=== PATIENT | female | born 1950 | race Caucasian/White ===

== ENCOUNTER 2017-09-19 13:05 | Day surgery (SDC) | payer MEDICARE ==
[~2017-09-19] VITALS: Ht 172.7 cm; Wt 99.5 kg
[~2017-09-19 13:05] MED LIST: ACET325 PO; ALBU90OI INH; ALLO100 PO; ALLO300 PO; AMIT25 PO; BIOTIN2500 MCG PO; BUPR150T2; BUSP5; Bentyl20 MG PO; CEPH500 PO; CIPR500 PO; CIPRO500 MG PO; CLON.5 PO; CLON1; CLON1 PO; COLC.6 PO; CYCL10 PO; Cleocin HCl150 MG PO; DIPATR PO; DIPH25 PO; DULO30 PO; DULO60 PO; ERGO400 PO; ESOM20; ESOM20 PO; FISH OIL 1,0001 EAC1 PO; FLUC150A PO; FLUO10; FURO40 PO; FURO80; FURO80 PO; GABA100 PO; GABA300 PO; HYDACE5 PO; HYDHCL25 PO; HYDR1TAB94 PO; INSULANPEN SC; LEVSOD100 PO; LEVSOD50; LIDO5TP TOP; LISI10; LISI10 PO; LISI20 PO; LORA1 PO; METO10 PO; MINO50 PO; MIRT15 PO; MODA200; MODA200 PO; MORP30; MORP30ER; MORP30ER PO; MORP60ER; MORP60ER PO; NAPR500EC PO; NEBI5 PO; Norco 5-325 Ta1 EACH PO; OMEP20ER PO; OXYACE5T PO; PARI1 PO; PHENA200 PO; POTA10T PO; POTA20PAC PO; POTCHL20ER; POTCHL20ER PO; PRAV20 PO; PRED20 PO; PREG75 PO; PROB500; PROC25S PR; Prinivil10 MG PO; RABEPRAZOLE; RXHYDGUAS PO; RXOXYACE PO; RXTRAM50 PO; SACC250C PO; SULTRIDS PO; TIZANIDINE HCL2 MG PO; TRAM50 PO; VITAMIN D32000 UNI1 PO; Voltaren100 GM TP; [UNRECOGNIZED DRUG - REMARK]; [UNRECOGNIZED DRUG - REMARK] PO
[2017-09-19] MEDS ORDERED: TRAM50 PO (13:27)
== END 2017-09-19 14:45 | disposition home or self-care (01) ==
LOC: ORSCSDS 13:05
PROVIDERS: Anesthesiology
PROC: 3E0R33Z Introduction of Anti-inflammatory into Spinal Canal, Percutaneous Approach (ICD-10-PCS; principal; 2017-09-19 14:00)
DX: M54.16 Radiculopathy, lumbar region (principal); E66.9 Obesity, unspecified; Z68.33 Body mass index [BMI] 33.0-33.9, adult; E11.9 Type 2 diabetes mellitus without complications; E03.9 Hypothyroidism, unspecified; I10 Essential (primary) hypertension; K21.9 Gastro-esophageal reflux disease without esophagitis; F41.9 Anxiety disorder, unspecified; N18.9 Chronic kidney disease, unspecified; Z79.899 Other long term (current) drug therapy
CPT/HCPCS: 82947; J1040

== ENCOUNTER 2018-01-15 10:08 | Day surgery (SDC) | payer MEDICARE ==
[~2018-01-15] VITALS: Ht 172.7 cm; Wt 100.2 kg
== END 2018-01-15 11:54 | disposition home or self-care (01) ==
LOC: ORSCSDS 10:08
PROVIDERS: Anesthesiology
PROC: 3E0R33Z Introduction of Anti-inflammatory into Spinal Canal, Percutaneous Approach (ICD-10-PCS; principal; 2018-01-15 11:00)
DX: M50.122 Cervical disc disorder at C5-C6 level with radiculopathy (principal); M96.1 Postlaminectomy syndrome, not elsewhere classified; E11.9 Type 2 diabetes mellitus without complications; E03.9 Hypothyroidism, unspecified; I10 Essential (primary) hypertension; F41.9 Anxiety disorder, unspecified; K21.9 Gastro-esophageal reflux disease without esophagitis; E66.01 Morbid (severe) obesity due to excess calories; Z68.34 Body mass index [BMI] 34.0-34.9, adult; Z79.4 Long term (current) use of insulin; Z79.899 Other long term (current) drug therapy
CPT/HCPCS: 82947; J1040; J2250; J3010

== ENCOUNTER 2018-03-11 15:14 | Emergency (ER) | payer MEDICARE ==
[~2018-03-11] VITALS: Ht 170.2 cm; Wt 99.8 kg
[2018-03-11] MEDS ORDERED: GABA600 (16:03)
[2018-03-11] MEDS ORDERED: Lasix80 MG (16:03)
[2018-03-11] MEDS ORDERED: Lisinopril2.5 MG (16:04)
[2018-03-11 16:05] LABS: BASOPHILS ABSOLUTE AUTO 0.06 K/mm3 (0.00-0.23); BASOPHILS PERCENT AUTO 1 % (0-2); EOSINOPHILS ABSOLUTE AUTO 0.24 K/mm3 (0.00-0.68); EOSINOPHILS PERCENT AUTO 3 % (0-6); Hematocrit 37.3 % (33.0-51.0); Hemoglobin 11.9 g/dL (11.5-16.0); IMMATURE GRAN ABSOLUTE AUTO 0.04 K/mm3 (0.00-0.10); IMMATURE GRAN PERCENT AUTO 1 % (0-1); LYMPHOCYTES ABSOLUTE AUTO 1.28 K/mm3 (0.84-5.20); LYMPHOCYTES PERCENT AUTO 15 % (21-46); MONOCYTES ABSOLUTE AUTO 0.83 K/mm3 (0.16-1.47); MONOCYTES PERCENT AUTO 10 % (4-13); Mean Corpuscular HGB 28.9 pg (26.0-34.0); Mean Corpuscular HGB Conc 31.9 g/dL (31.5-36.5); Mean Corpuscular Volume 91 fL (80-100); Mean Platelet Volume 10.1 fL (9.1-12.4); NEUTROPHILS ABSOLUTE AUTO 6.04 K/mm3 (1.96-9.15); NEUTROPHILS PERCENT AUTO 71 % (41-73); Platelet Count 213 K/mm3 (150-400); RDW Coefficient Variation 13.5 % (11.7-14.2); RDW Standard Deviation 44.5 fL (35.1-46.3); Red Blood Cell Count 4.12 M/mm3 (3.80-5.20); White Blood Cell Count 8.49 K/mm3 (4.00-11.30)
[2018-03-11 16:28] LABS: Alanine Aminotransfer (ALT/SGP 26 U/L (12-78); Albumin, Blood 3.4 g/dL (3.4-5.0); Albumin/Globulin Ratio 1.1 (0.8-1.8); Alk Phos 162 U/L (50-136); Anion Gap 7 mmol/L (6-16); Aspartate Aminotrans (AST/SGOT 25 U/L (12-37); Bilirubin, Total 0.4 mg/dL (0.1-1.0); Blood Urea Nitrogen 13 mg/dL (8-24); Bun/Creatinine Ratio 13.8 (12.0-20.0); CO2, Blood 25 mmol/L (21-32); Calcium, Blood 8.4 mg/dL (8.5-10.1); Chloride, Blood 107 mmol/L (98-108); Creatinine, Blood 0.95 mg/dL (0.40-1.00); Globulin, Blood 3.2 g/dL (2.2-4.0); Glomerular Filtration Rate >60 (60-); Glucose, Blood 143 mg/dL (70-99); Potassium, Blood 3.8 mmol/L (3.5-5.5); Sodium, Blood 139 mmol/L (136-145); Total Protein, Blood 6.6 g/dL (6.4-8.2)
== END 2018-03-11 18:12 | disposition home or self-care (01) ==
LOC: ER 15:14
PROVIDERS: Emergency Medicine
DX: G45.9 Transient cerebral ischemic attack, unspecified (principal); Z88.6 Allergy status to analgesic agent; Z79.899 Other long term (current) drug therapy
CPT/HCPCS: 36415; 70450; 71046; 80053; 82947; 83880; 85025; 93005; 93010; 93880; 99285-25

== ENCOUNTER → 2018-06-11 | Outpatient (CLI) | payer MEDICARE, OTHER ==
[~2018-06-11] MED LIST changes: +GABA600; +Lasix80 MG; +Lisinopril2.5 MG; +Pyridium100 MG PO
[2018-06-11 17:39] LABS: Appearance, Urine Hazy (Clear); Bilirubin, Urine Neg (Neg); Blood, Urine 1+ (Neg); Color, Urine Yellow (P-Yellow); Glucose Qualitative, Urine Neg (Neg); Ketones, Urine Neg (Neg); Leukocyte Esterase, Urine 2+ (Neg); Nitrite, Urine Pos (Neg); Protein, Urine 1+ (Neg); Urobilinogen, Urine NORM (Normal)
[2018-06-11 18:14] LABS: White Blood Cells, Urine 25-50 /hpf (0-5)
[2018-06-11 18:15] LABS: Bacteria Mod /hpf; Red Blood Cells, Urine Not Seen /hpf (0-2); Squamous Epithelial Cells Rare /hpf (Few)
== END | disposition home or self-care (01) ==
LOC: LAB SHORT 09:25 → LAB 09:25
PROVIDERS: Internal Medicine Nephrology
DX: N39.0 Urinary tract infection, site not specified (principal)
CPT/HCPCS: 81001; 87077; 87086; 87186

== ENCOUNTER 2018-07-20 05:59 | Emergency (ER) | payer MEDICARE, OTHER ==
[~2018-07-20] VITALS: Ht 170.2 cm; Wt 99.8 kg
[~2018-07-20 05:59] MED LIST changes: -Pyridium100 MG PO
[2018-07-20 06:30] LABS: Source, Urine Clean Catch
[2018-07-20 06:34] LABS: Bilirubin, Urine Neg (Neg); Blood, Urine Neg (Neg); Glucose Qualitative, Urine Neg (Neg); Ketones, Urine Neg (Neg); Leukocyte Esterase, Urine 3+ (Neg); Nitrite, Urine Neg (Neg); Protein, Urine Neg (Neg); Urobilinogen, Urine NORM (Normal)
[2018-07-20 07:02] LABS: Appearance, Urine Hazy (Clear); Color, Urine Pale Yellow (P-Yellow)
[2018-07-20 07:03] LABS: Bacteria Rare /hpf; Red Blood Cells, Urine Not Seen /hpf (0-2); Squamous Epithelial Cells Rare /hpf (Few); White Blood Cells, Urine 25-50 /hpf (0-5)
[2018-07-20] MEDS ORDERED: CEPH500 PO (07:12)
[2018-07-20] MEDS ORDERED: Pyridium100 MG PO (07:12)
== END 2018-07-20 07:40 | disposition home or self-care (01) ==
LOC: ER 05:59
PROVIDERS: Emergency Medicine
DX: N30.00 Acute cystitis without hematuria (principal); Z88.6 Allergy status to analgesic agent; Z79.899 Other long term (current) drug therapy
CPT/HCPCS: 81001; 87077; 87086; 87186; 99283

== ENCOUNTER → 2018-08-21 | Outpatient (CLI) | payer MEDICARE, OTHER ==
[~2018-08-21] MED LIST changes: +Pyridium100 MG PO
[2018-08-21 17:43] LABS: White Blood Cells, Urine TNTC /hpf (0-5)
[2018-08-21 17:45] LABS: Bacteria Many /hpf; Squamous Epithelial Cells Few /hpf (Few)
== END | disposition home or self-care (01) ==
LOC: LAB SHORT 10:35 → LAB 10:35
PROVIDERS: Internal Medicine Nephrology
DX: N39.0 Urinary tract infection, site not specified (principal)
CPT/HCPCS: 81015; 87077; 87086; 87186

== ENCOUNTER 2018-09-23 10:11 | Day surgery (SDC) | payer MEDICARE, OTHER ==
[~2018-09-23] VITALS: Ht 172.7 cm; Wt 96.2 kg
[~2018-09-23 10:11] MED LIST changes: +ALBU90OI61 INH; +ALPR.5 PO; +BIOTIN5000 MCG PO; +Bystolic20 MG PO; +CLON.3TP TOP; +Calcitriol0.25 MCG PO; +Calcium Magnes1 EAC1 PO; +Cinnamon500 MG PO; +Clonazepam0.5 MG PO; +Fish Oil 10001000 MG PO; +GABA600 PO; +K-Dur 20 meq T20 MEQ PO; +LEVO-T100 MCG PO; +LIDO700A20 TOP; +LO-DOSE ASPIRIN81 MG PO; +Minocycline HC100 M1 PO; +NEBI10 PO; +OMEPRAZOLE MAGN20 MG PO; +Omeprazole20 M1 PO; +SERT100 PO; +TUMERIC PO; +Vitamin D2000 UNIT PO; +ZESTRIL40 MG PO; +Zanaflex2 M1 PO
[2018-09-23] MEDS ORDERED: Lomotil Tablet1 EACH (11:18)
--- NOTE | 2018-09-23 13:21 | NUR ---
09/23/18 1321 Shayla Morton O2 10L VIA NON REBREATHER
== END 2018-09-23 14:55 | disposition home or self-care (01) ==
LOC: ORSCSDS 10:11
PROVIDERS: Internal Medicine Gastroenterology
PROC: 0DBK8ZX Excision of Ascending Colon, Via Natural or Artificial Opening Endoscopic, Diagnostic (ICD-10-PCS; principal; 2018-09-23 11:30)
PROC: 0DB68ZX Excision of Stomach, Via Natural or Artificial Opening Endoscopic, Diagnostic (ICD-10-PCS; principal; 2018-09-23 11:30)
PROC: 0DB98ZX Excision of Duodenum, Via Natural or Artificial Opening Endoscopic, Diagnostic (ICD-10-PCS; principal; 2018-09-23 11:30)
PROC: 0DBE8ZX Excision of Large Intestine, Via Natural or Artificial Opening Endoscopic, Diagnostic (ICD-10-PCS; principal; 2018-09-23 11:30)
PROC: 0DBL8ZX Excision of Transverse Colon, Via Natural or Artificial Opening Endoscopic, Diagnostic (ICD-10-PCS; principal; 2018-09-23 11:30)
DX: R19.7 Diarrhea, unspecified (principal); R10.11 Right upper quadrant pain; R10.32 Left lower quadrant pain; Z86.010 Personal history of colon polyps; K31.7 Polyp of stomach and duodenum; D12.2 Benign neoplasm of ascending colon; K63.5 Polyp of colon; K57.30 Diverticulosis of large intestine without perforation or abscess without bleeding; K64.8 Other hemorrhoids; K64.4 Residual hemorrhoidal skin tags; I10 Essential (primary) hypertension; J45.909 Unspecified asthma, uncomplicated; G47.33 Obstructive sleep apnea (adult) (pediatric); K70.30 Alcoholic cirrhosis of liver without ascites; E11.40 Type 2 diabetes mellitus with diabetic neuropathy, unspecified; E03.9 Hypothyroidism, unspecified; Z79.4 Long term (current) use of insulin; Z79.82 Long term (current) use of aspirin; Z79.899 Other long term (current) drug therapy
CPT/HCPCS: 82947; 88305; 88342; J2250; J2370; J2704; J7120

== ENCOUNTER 2018-09-30 10:57 | Day surgery (SDC) | payer MEDICARE, OTHER ==
[~2018-09-30] VITALS: Ht 172.7 cm; Wt 96.4 kg
[~2018-09-30 10:57] MED LIST changes: +Lomotil Tablet1 EACH
== END 2018-09-30 12:12 | disposition home or self-care (01) ==
LOC: ORSCSDS 10:57
PROVIDERS: Anesthesiology
PROC: 3E0R33Z Introduction of Anti-inflammatory into Spinal Canal, Percutaneous Approach (ICD-10-PCS; principal; 2018-09-30 12:00)
DX: M54.16 Radiculopathy, lumbar region (principal); M96.1 Postlaminectomy syndrome, not elsewhere classified; I10 Essential (primary) hypertension; E11.9 Type 2 diabetes mellitus without complications; F32.9 Major depressive disorder, single episode, unspecified; J45.909 Unspecified asthma, uncomplicated; E66.9 Obesity, unspecified; Z68.32 Body mass index [BMI] 32.0-32.9, adult; Z79.82 Long term (current) use of aspirin; Z79.4 Long term (current) use of insulin; Z79.899 Other long term (current) drug therapy
CPT/HCPCS: 82947; J1040

== ENCOUNTER 2019-02-26 10:13 | Day surgery (SDC) | payer MEDICARE, OTHER ==
[~2019-02-26] VITALS: Ht 172.7 cm; Wt 94.8 kg
--- NOTE | 2019-02-26 10:37 | NUR ---
02/26/19 Perla Wynn CALL LIGHT WITHIN REACH
== END 2019-02-26 11:48 | disposition home or self-care (01) ==
LOC: ORSCSDS 10:13
PROVIDERS: Anesthesiology
PROC: B01B1ZZ Fluoroscopy of Spinal Cord using Low Osmolar Contrast (ICD-10-PCS; principal; 2019-02-26 11:00)
PROC: 3E0R33Z Introduction of Anti-inflammatory into Spinal Canal, Percutaneous Approach (ICD-10-PCS; principal; 2019-02-26 11:00)
DX: M96.1 Postlaminectomy syndrome, not elsewhere classified (principal); M54.12 Radiculopathy, cervical region; I10 Essential (primary) hypertension; E03.9 Hypothyroidism, unspecified; E11.9 Type 2 diabetes mellitus without complications; G47.33 Obstructive sleep apnea (adult) (pediatric); J45.909 Unspecified asthma, uncomplicated; K21.9 Gastro-esophageal reflux disease without esophagitis; F41.8 Other specified anxiety disorders; Z79.4 Long term (current) use of insulin; Z79.899 Other long term (current) drug therapy; Z79.82 Long term (current) use of aspirin
CPT/HCPCS: 82947; J1040; J2250; J3010; J7040

== ENCOUNTER → 2019-05-11 | Outpatient (CLI) | payer MEDICARE, OTHER ==
[2019-05-14 13:07] LABS: M-SPIKE, % Not Observed % (Not Observed); PROTEIN,TOTAL,URINE <4.0 mg/dL (Not Estab.)
== END | disposition home or self-care (01) ==
LOC: OLS 03:00 → LAB SHORT 03:00 → LAB FUT 04-20 13:50
PROVIDERS: Internal Medicine
DX: Z00.01 Encounter for general adult medical examination with abnormal findings (principal)
CPT/HCPCS: 81050; 84156; 84166

== ENCOUNTER → 2020-02-25 | Outpatient (CLI) | payer MEDICARE, OTHER | END | disposition home or self-care (01) | LOC: LAB SHORT 08:45 → LAB 08:45 | DX: R34 Anuria and oliguria (principal) | CPT/HCPCS: 87077; 87086; 87186 ==

== ENCOUNTER → 2020-05-06 | Outpatient (CLI) | payer MEDICARE, OTHER ==
[2020-05-07 12:57] LABS: Candida species (DNA Probe) Negative (NEGATIVE); G. vaginalis (DNA Probe) Negative (NEGATIVE); T. vaginalis (DNA Probe) Negative (NEGATIVE)
== END | disposition home or self-care (01) ==
LOC: LAB 18:29 → LAB SHORT 18:29
PROVIDERS: Family Medicine
DX: N76.0 Acute vaginitis (principal)
CPT/HCPCS: 87480; 87510; 87660

== ENCOUNTER → 2020-09-30 | Outpatient (CLI) | payer MEDICARE | END | disposition home or self-care (01) | LOC: LAB 12:05 → LAB SHORT 12:05 | DX: R35.0 Frequency of micturition (principal) | CPT/HCPCS: 87086 ==

== ENCOUNTER → 2020-11-06 | Outpatient (CLI) | payer MEDICARE | LOC: LAB 10:33 → LAB SHORT 10:33 | DX: N30.00 Acute cystitis without hematuria (principal); Z88.8 Allergy status to other drugs, medicaments and biological substances; Z88.1 Allergy status to other antibiotic agents | CPT/HCPCS: 87077; 87086; 87186 ==

== ENCOUNTER → 2021-03-16 | Outpatient (CLI) | payer MEDICARE | END | disposition home or self-care (01) | LOC: LAB SHORT 15:04 → LAB 15:04 | DX: R30.0 Dysuria (principal) | CPT/HCPCS: 87077; 87086; 87186 ==

== ENCOUNTER → 2021-07-07 | Outpatient (CLI) | payer MEDICARE, OTHER ==
[~2021-07-07] MED LIST changes: +BASAGLAR K100 UNIT/3 SC; +CALCITRIOL0.25 MC4 PO; +EUTHYROX100 MC1 PO; +NEURONTIN300 MG PO; +Naltrexone HCl50 MG PO; +Nitrofurantoin100 M1 PO; +VENL150ER PO
== END | disposition home or self-care (01) ==
LOC: LAB SHORT 17:53
DX: N39.0 Urinary tract infection, site not specified (principal)
CPT/HCPCS: 87077; 87086; 87186

== ENCOUNTER 2021-07-12 12:38 | Emergency (ER) | payer MEDICARE, OTHER ==
[~2021-07-12] VITALS: Ht 170.2 cm; Wt 95.2 kg
[~2021-07-12 12:38] MED LIST changes: -BASAGLAR K100 UNIT/3 SC; -CALCITRIOL0.25 MC4 PO; -EUTHYROX100 MC1 PO; -NEURONTIN300 MG PO; -Naltrexone HCl50 MG PO; -Nitrofurantoin100 M1 PO; -VENL150ER PO
[2021-07-12 13:20] LABS: BASOPHILS ABSOLUTE AUTO 0.09 K/mm3 (0.00-0.23); BASOPHILS PERCENT AUTO 1 % (0-2); EOSINOPHILS ABSOLUTE AUTO 0.29 K/mm3 (0.00-0.68); EOSINOPHILS PERCENT AUTO 3 % (0-6); Hematocrit 41.5 % (33.0-51.0); Hemoglobin 13.4 g/dL (11.5-16.0); IMMATURE GRAN ABSOLUTE AUTO 0.13 K/mm3 (0.00-0.10); IMMATURE GRAN PERCENT AUTO 1 % (0-1); LYMPHOCYTES ABSOLUTE AUTO 1.29 K/mm3 (0.84-5.20); LYMPHOCYTES PERCENT AUTO 13 % (21-46); MONOCYTES ABSOLUTE AUTO 0.72 K/mm3 (0.16-1.47); MONOCYTES PERCENT AUTO 7 % (4-13); Mean Corpuscular HGB 30.5 pg (26.0-34.0); Mean Corpuscular HGB Conc 32.3 g/dL (31.5-36.5); Mean Corpuscular Volume 94 fL (80-100); Mean Platelet Volume 9.8 fL (9.1-12.4); NEUTROPHILS ABSOLUTE AUTO 7.84 K/mm3 (1.96-9.15); NEUTROPHILS PERCENT AUTO 76 % (41-73); Platelet Count 275 K/mm3 (150-400); RDW Coefficient Variation 13.7 % (11.7-14.2); RDW Standard Deviation 47.2 fL (35.1-46.3); White Blood Cell Count 10.36 K/mm3 (4.00-11.30)
[2021-07-12 13:39] LABS: Albumin, Blood 3.3 g/dL (3.4-5.0); Albumin/Globulin Ratio 0.7 (0.8-1.8); Bilirubin, Total 0.5 mg/dL (0.1-1.0); Calcium, Blood 9.5 mg/dL (8.5-10.1); Globulin, Blood 4.5 g/dL (2.2-4.0); Potassium, Blood 4.2 mmol/L (3.5-5.5); Total Protein, Blood 7.8 g/dL (6.4-8.2)
[2021-07-12] MEDS ORDERED: ALLO300 PO (15:17)
[2021-07-12] MEDS ORDERED: Nitrofurantoin100 M1 PO (15:17)
[2021-07-12] MEDS ORDERED: BASAGLAR K100 UNIT/3 SC (15:18)
[2021-07-12] MEDS ORDERED: VENL150ER PO (15:19)
[2021-07-12] MEDS ORDERED: Naltrexone HCl50 MG PO (15:21)
[2021-07-12] MEDS ORDERED: NEURONTIN300 MG PO (15:22)
[2021-07-12] MEDS ORDERED: CALCITRIOL0.25 MC4 PO (15:23)
[2021-07-12] MEDS ORDERED: EUTHYROX100 MC1 PO (15:23)
== END 2021-07-12 17:16 | disposition home or self-care (01) ==
LOC: ER 12:38
PROVIDERS: Physician Assistant
DX: K21.9 Gastro-esophageal reflux disease without esophagitis (principal); Z87.440 Personal history of urinary (tract) infections
CPT/HCPCS: 36415; 71045; 80053; 83690; 84484; 85025; 93005; 93010; A9270

== ENCOUNTER 2021-08-08 17:08 | Emergency (ER) | payer MEDICARE, OTHER ==
[~2021-08-08] VITALS: Ht 172.7 cm; Wt 97.1 kg
[~2021-08-08 17:08] MED LIST changes: +BASAGLAR K100 UNIT/3 SC; +CALCITRIOL0.25 MC4 PO; +EUTHYROX100 MC1 PO; +NEURONTIN300 MG PO; +Naltrexone HCl50 MG PO; +Nitrofurantoin100 M1 PO; +VENL150ER PO
== END 2021-08-08 18:30 | disposition home or self-care (01) ==
LOC: ER 17:08
DX: L53.9 Erythematous condition, unspecified (principal); Z88.6 Allergy status to analgesic agent; Z88.0 Allergy status to penicillin; Z88.1 Allergy status to other antibiotic agents; Z79.899 Other long term (current) drug therapy; Z79.4 Long term (current) use of insulin
CPT/HCPCS: 93971; 99283-25

== ENCOUNTER → 2021-08-14 | Outpatient (CLI) | payer MEDICARE, OTHER ==
[2021-08-14 10:35] LABS: BASOPHILS ABSOLUTE AUTO 0.13 K/mm3 (0.00-0.23); BASOPHILS PERCENT AUTO 2 % (0-2); EOSINOPHILS ABSOLUTE AUTO 0.39 K/mm3 (0.00-0.68); EOSINOPHILS PERCENT AUTO 5 % (0-6); Hematocrit 36.9 % (33.0-51.0); IMMATURE GRAN ABSOLUTE AUTO 0.06 K/mm3 (0.00-0.10); IMMATURE GRAN PERCENT AUTO 1 % (0-1); LYMPHOCYTES PERCENT AUTO 18 % (21-46); MONOCYTES ABSOLUTE AUTO 0.67 K/mm3 (0.16-1.47); MONOCYTES PERCENT AUTO 8 % (4-13); Mean Corpuscular HGB 30.5 pg (26.0-34.0); Mean Corpuscular HGB Conc 32.5 g/dL (31.5-36.5); Mean Corpuscular Volume 94 fL (80-100); Mean Platelet Volume 10.3 fL (9.1-12.4); NEUTROPHILS ABSOLUTE AUTO 5.87 K/mm3 (1.96-9.15); NEUTROPHILS PERCENT AUTO 67 % (41-73); Platelet Count 221 K/mm3 (150-400); RDW Coefficient Variation 13.2 % (11.7-14.2); RDW Standard Deviation 45.1 fL (35.1-46.3); Red Blood Cell Count 3.94 M/mm3 (3.80-5.20); White Blood Cell Count 8.72 K/mm3 (4.00-11.30)
== END | disposition home or self-care (01) ==
LOC: LAB SHORT 09:11 → LAB FUT 08-29 17:00
PROVIDERS: Internal Medicine Rheumatology
DX: D72.819 Decreased white blood cell count, unspecified (principal); E11.9 Type 2 diabetes mellitus without complications
CPT/HCPCS: 36415; 83036; 85025

== ENCOUNTER → 2021-11-12 | Outpatient (CLI) | payer MEDICARE, OTHER | END | disposition home or self-care (01) | LOC: LAB 11:20 → LAB SHORT 11:20 | DX: R30.9 Painful micturition, unspecified (principal) | CPT/HCPCS: 87077; 87086; 87186 ==

== ENCOUNTER 2022-06-11 09:07 | Emergency (ER) | payer MEDICARE ==
[~2022-06-11] VITALS: Ht 172.7 cm; Wt 90.7 kg
[~2022-06-11 09:07] MED LIST changes: +CEFP200 PO; +ONDA4ODT MM
[2022-06-11 10:29] LABS: BASOPHILS ABSOLUTE AUTO 0.08 K/mm3 (0.00-0.23); BASOPHILS PERCENT AUTO 1 % (0-2); EOSINOPHILS ABSOLUTE AUTO 0.14 K/mm3 (0.00-0.68); EOSINOPHILS PERCENT AUTO 2 % (0-6); Hematocrit 37.3 % (33.0-51.0); Hemoglobin 12.5 g/dL (11.5-16.0); IMMATURE GRAN ABSOLUTE AUTO 0.06 K/mm3 (0.00-0.10); IMMATURE GRAN PERCENT AUTO 1 % (0-1); LYMPHOCYTES ABSOLUTE AUTO 1.24 K/mm3 (0.84-5.20); LYMPHOCYTES PERCENT AUTO 13 % (21-46); MONOCYTES ABSOLUTE AUTO 0.61 K/mm3 (0.16-1.47); MONOCYTES PERCENT AUTO 6 % (4-13); Mean Corpuscular HGB 29.8 pg (26.0-34.0); Mean Corpuscular HGB Conc 33.5 g/dL (31.5-36.5); Mean Corpuscular Volume 89 fL (80-100); Mean Platelet Volume 9.9 fL (9.1-12.4); NEUTROPHILS ABSOLUTE AUTO 7.37 K/mm3 (1.96-9.15); NEUTROPHILS PERCENT AUTO 78 % (41-73); Platelet Count 246 K/mm3 (150-400); RDW Standard Deviation 45.1 fL (35.1-46.3)
[2022-06-11 10:44] LABS: Albumin, Blood 3.3 g/dL (3.4-5.0); Albumin/Globulin Ratio 0.9 (0.8-1.8); Bilirubin, Total 0.6 mg/dL (0.1-1.0); Bun/Creatinine Ratio 19.8 (12.0-20.0); Calcium, Blood 9.1 mg/dL (8.5-10.1); Creatinine, Blood 0.96 mg/dL (0.40-1.00); Globulin, Blood 3.6 g/dL (2.2-4.0); Potassium, Blood 3.9 mmol/L (3.5-5.5); Total Protein, Blood 6.9 g/dL (6.4-8.2)
== END 2022-06-11 11:31 | disposition home or self-care (01) ==
LOC: ER 09:07
PROVIDERS: Physician Assistant
DX: R11.2 Nausea with vomiting, unspecified (principal); Z88.6 Allergy status to analgesic agent; Z88.0 Allergy status to penicillin; Z88.8 Allergy status to other drugs, medicaments and biological substances; Z79.899 Other long term (current) drug therapy; Z79.4 Long term (current) use of insulin; E11.9 Type 2 diabetes mellitus without complications; I10 Essential (primary) hypertension
CPT/HCPCS: 36415; 80053; 82947; 83690; 85025; J2405; J7030

== ENCOUNTER 2022-09-26 01:08 | Day surgery (SDC) | payer MEDICARE, OTHER | END 2022-09-26 22:58 | disposition home or self-care (01) | LOC: WOUND 01:08 | DX: L89.42 Pressure ulcer of contiguous site of back, buttock and hip, stage 2 (principal); J45.909 Unspecified asthma, uncomplicated; E05.90 Thyrotoxicosis, unspecified without thyrotoxic crisis or storm; I12.9 Hypertensive chronic kidney disease with stage 1 through stage 4 chronic kidney disease, or unspecified chronic kidney disease; E11.22 Type 2 diabetes mellitus with diabetic chronic kidney disease; N18.9 Chronic kidney disease, unspecified; Z88.0 Allergy status to penicillin; Z88.6 Allergy status to analgesic agent; Z88.8 Allergy status to other drugs, medicaments and biological substances | CPT/HCPCS: G0463 ==

== ENCOUNTER 2022-09-28 00:30 | Day surgery (SDC) | payer MEDICARE, OTHER | END 2022-09-28 22:52 | disposition home or self-care (01) | LOC: WOUND 00:30 | DX: L89.42 Pressure ulcer of contiguous site of back, buttock and hip, stage 2 (principal) | CPT/HCPCS: G0463 ==

== ENCOUNTER 2022-10-01 00:27 | Day surgery (SDC) | payer MEDICARE, OTHER | END 2022-10-01 22:49 | disposition home or self-care (01) | LOC: WOUND 00:27 | DX: L89.42 Pressure ulcer of contiguous site of back, buttock and hip, stage 2 (principal) | CPT/HCPCS: G0463 ==

== ENCOUNTER 2022-10-03 02:32 | Day surgery (SDC) | payer MEDICARE, OTHER | END 2022-10-03 23:26 | disposition home or self-care (01) | LOC: WOUND 02:32 | DX: L89.42 Pressure ulcer of contiguous site of back, buttock and hip, stage 2 (principal); I12.9 Hypertensive chronic kidney disease with stage 1 through stage 4 chronic kidney disease, or unspecified chronic kidney disease; E11.22 Type 2 diabetes mellitus with diabetic chronic kidney disease; N18.9 Chronic kidney disease, unspecified | CPT/HCPCS: G0463 ==

== ENCOUNTER 2023-01-21 02:17 | Day surgery (SDC) | payer MEDICARE, OTHER | END 2023-01-21 22:51 | disposition home or self-care (01) | LOC: WOUND 02:17 | DX: L89.41 Pressure ulcer of contiguous site of back, buttock and hip, stage 1 (principal); E11.9 Type 2 diabetes mellitus without complications; J45.909 Unspecified asthma, uncomplicated; Z88.2 Allergy status to sulfonamides; Z88.1 Allergy status to other antibiotic agents; I10 Essential (primary) hypertension | CPT/HCPCS: G0463 ==

== ENCOUNTER 2023-02-15 00:43 | Day surgery (SDC) | payer MEDICARE, OTHER | END 2023-02-15 22:44 | disposition home or self-care (01) | LOC: WOUND 00:43 | DX: L89.322 Pressure ulcer of left buttock, stage 2 (principal); L89.41 Pressure ulcer of contiguous site of back, buttock and hip, stage 1 | CPT/HCPCS: G0463 ==

== ENCOUNTER 2023-02-22 10:42 | Day surgery (SDC) | payer MEDICARE, OTHER | END 2023-02-22 23:05 | disposition home or self-care (01) | LOC: WOUND 10:42 | DX: L89.41 Pressure ulcer of contiguous site of back, buttock and hip, stage 1 (principal) | CPT/HCPCS: G0463 ==

== ENCOUNTER → 2024-04-06 | Outpatient (CLI) | payer MEDICARE, OTHER ==
[~2024-04-06] MED LIST changes: +ATOR40TA PO; +BACLOFEN5 M1 PO; +CATAPRES0.1 MG PO; +FARXIGA5 MG PO; +MUPIROCIN1 G1 TOP; +TORSE20 PO; +VENL75ER PO; +[UNRECOGNIZED DRUG - OTHER] TOP
== END ==
LOC: LAB 16:21 → LAB SHORT 16:21
DX: N39.0 Urinary tract infection, site not specified (principal)
CPT/HCPCS: 87077; 87086; 87186